=== PATIENT | female | born 1935 | race Caucasian/White ===

== ENCOUNTER → 2020-12-09 10:55 | Outpatient (CLI) | payer OTHER, SELFPAY ==
[2020-12-09 13:12] LABS: Chloride 85 mmol/L (98-107); Sodium 134 mmol/L (136-145)
[2020-12-09 13:13] LABS: Potassium 3.4 mmoL/L (3.5-5.1)
[2020-12-09 13:15] LABS: Anion Gap 13.4 mEq/L (5-15); Blood Urea Nitrogen 48 mg/dl (7-17); Carbon Dioxide 39 mmol/L (22.0-30.0); Estimated Glomerular Filt Rate 16 ml/min (>60); GFR (African American) 20 ML/MIN (>60)
[2020-12-09 13:16] LABS: Calcium 8.9 mg/dl (8.4-10.2); Glucose 104 mg/dl (74-100)
== END ==
PROVIDERS: Visit Provider Family Medicine Hospice and Palliative Medicine
DX: I50.9 Heart failure, unspecified (principal); N19 Unspecified kidney failure
CPT/HCPCS: 80048

== ENCOUNTER 2021-01-29 07:35 | Outpatient (CLI) | payer OTHER, SELFPAY ==
[2021-01-29] VITALS (18 sets, daily range): BP systolic 104–132; BP diastolic 40–76; PULSE 57–68; RESP 16; TEMP 35.8–36.1; O2SAT 99–100; BMI 34.0
[2021-01-29 09:04] LABS: Hemoglobin 6.5 g/dL (12.2-16.2)
--- NOTE | 2021-01-29 10:50 | PC.NURSE ---
1040 - BLOOD TRANSFUSING AT 100 ML/HR AT THIS TIME.
--- NOTE | 2021-01-29 11:45 | PC.NURSE ---
1110-INCREASED RATE TO 150 ML/HR AT THIS TIME
--- NOTE | 2021-01-29 12:01 | PC.NURSE ---
1140-INCREASED RATE TO 200ML/HR AT THIS TIME
--- NOTE | 2021-01-29 13:04 | PC.NURSE ---
1300-BLOOD TRANSFUSING AT 100 ML/HR AT THIS TIME.
--- NOTE | 2021-01-29 13:57 | PC.NURSE ---
1330-INCREASED RATE TO 150 ML/HR AT THIS TIME.
--- NOTE | 2021-01-29 14:04 | PC.NURSE ---
1400-INCREASED RATE TO 200 ML/HR AT THIS TIME.
--- NOTE | 2021-01-29 14:04 | PC.NURSE ---
1245 - GAVE LASIX 80MG IVP OVER 2 MIN AT THIS TIME.
[2021-01-29 16:16] LABS: Hematocrit 28.4 % (37.0-47.0)
[2021-01-29 16:33] LABS: Hemoglobin 8.7 g/dL (12.2-16.2)
== END 2021-01-29 16:30 | disposition home or self-care (01) ==
LOC: INF 07:39
PROVIDERS: PCP Internal Medicine Adolescent Medicine; Visit Provider Internal Medicine Adolescent Medicine
DX: D64.9 Anemia, unspecified (principal)
CPT/HCPCS: 36415; 36430; 85014; 85018; 86850; P9016